=== PATIENT | male | born 1970 | race Caucasian/White ===

== ENCOUNTER 2024-02-12 08:00 | Outpatient (CLI) | payer OTHER | END 2024-02-12 08:01 | disposition home or self-care (01) | LOC: PET 08:00 | PROVIDERS: ATTEND Internal Medicine | DX: Z12.11 Encounter for screening for malignant neoplasm of colon (principal); K76.9 Liver disease, unspecified; R59.0 Localized enlarged lymph nodes; R91.8 Other nonspecific abnormal finding of lung field | CPT/HCPCS: 78816; A9552 ==

== ENCOUNTER 2024-04-23 00:18 | Emergency (ER) | payer BC ==
[2024-04-23] MEDS ORDERED: Morphine 4 MG/ML VIAL ONE (01:37)
[2024-04-23] MEDS ORDERED: Ondansetron PF 4 MG/2 ML Vial ONE (01:38)
[2024-04-23 01:53] LABS: #Basophils Less than 0.03 10x3/uL (0.0-0.2); #Eosinphils Less than 0.03 10x3/uL (0.0-0.7); %Eosinophils 0.1 % (0.0-10.0); %Lymphocytes 6.2 % (21.0-51.0); %Monocytes 7.9 % (0.0-10.0); %Neutrophils 85.1 % (42.0-75.0); Hematocrit 32.8 % (42.0-52.0); Hemoglobin 11.2 g/dL (14.0-18.0); Mean Corpuscular HGB CONC 34.1 g/dL (32.0-36.0); Mean Corpuscular Hemoglobin 28.9 pg (27.0-31.0); Mean Corpuscular Volume 84.8 fL (78.0-98.0); Mean Platelet Volume 9.5 fL (7.4-10.4); Platelet Count 333 10x3/uL (130-400); RBC Distribution Width 15.2 % (11.5-14.5); Red Blood Cell (RBC) Count 3.87 mill/uL (4.70-6.10)
[2024-04-23 02:08] LABS: INR-International Normal Ratio 1.3; Prothrombin Time 15.9 sec (12.0-14.7)
[2024-04-23 02:09] LABS: PTT 31.4 sec (22.9-36.1)
[2024-04-23 02:11] LABS: ALT (SGPT) 101 U/L (8-55); AST (SGOT) 179 U/L (5-34); Albumin 2.8 g/dL (3.5-5.0); Alkaline Phosphatase 441 U/L (40-110); Anion Gap 18 mmol/L (10-20); BUN (Urea Nitrogen) 14 mg/dL (8.4-25.7); Bilirubin, Total 2.7 mg/dL (0.2-1.2); Calc. Creatinine Clearance 0 mL/min (70-130); Calcium 9.3 mg/dL (7.8-10.44); Carbon Dioxide 26 mmol/L (22-29); Chloride 90 mmol/L (98-107); Estimated GFR 111; Glucose 95 mg/dL (70-105); Lipase 12 U/L (8-78); Potassium 4.1 mmol/L (3.5-5.1); Protein, Total 6.8 g/dL (6.0-8.3); Sodium 130 mmol/L (136-145)
== END 2024-04-23 02:55 | disposition home or self-care (01) ==
LOC: ERS 00:18
DX: R10.9 Unspecified abdominal pain (principal); C78.5 Secondary malignant neoplasm of large intestine and rectum
CPT/HCPCS: 36415; 80053; 83605; 83690; 85025; 85610; 85730; 96374; 96375; J2272; J2405